=== PATIENT | male | born 1940 | race Caucasian/White ===

== ENCOUNTER 2020-12-13 22:20 | Inpatient (IN) | payer MEDICARE, OTHER ==
[~2020-12-13] VITALS: Ht 172.7 cm; Wt 101.8 kg
[2020-12-13 20:00] VITALS: BP 131/77
[2020-12-13 22:20] VITALS: BP 131/77
[2020-12-13] MEDS ORDERED: ACETAMINOPHEN 325MG TABLET PO PRN (23:30)
[2020-12-13] MEDS ORDERED: ONDANSETRON HCL 4MG TABLET PO PRN (23:30)
[2020-12-14] MEDS: OXYCODONE HCL/ACETAMINOPHEN 5/325MG TABLET PO PRN ×3 (03:26→17:30)
[2020-12-14] MEDS: PANTOPRAZOLE 40MG DR TABLET PO SCH (06:08)
[2020-12-14] MEDS: GABAPENTIN 100MG CAPSULE PO SCH ×3 (06:08→21:59)
[2020-12-14 06:41] LABS: BASOPHILS % 1.1 % (0.0-2.0); EOSINOPHILS % 4.6 % (0.0-5.0); HEMATOCRIT. 24.5 % (42.0-52.0); HEMOGLOBIN. 8.6 g/dL (14.0-18.0); LYMPHOCYTES % 16.9 % (20.0-50.0); MEAN CORPUSCULAR HEMOGLOBIN 30.7 pg (28.0-32.0); MEAN CORPUSCULAR VOLUME 87.8 fL (80.0-94.0); MEAN PLATELET VOLUME 7.7 fl (7.4-10.4); MONOCYTES % 9.6 % (2.0-8.0); NEUTROPHILS % 67.8 % (40.0-76.0); PLATELET 220 x1000/uL (130-400); RED BLOOD CELL COUNT 2.79 mill/uL (4.7-6.1); RED CELL DISTRIBUTION WIDTH 15.1 % (11.6-14.6)
[2020-12-14 06:49] LABS: CHLORIDE 108 mEq/L (98-107)
[2020-12-14 08:00] VITALS: BP 126/60
[2020-12-14] MEDS ORDERED: ASCORBIC ACID 500 MG TABLET PO SCH (09:00)
[2020-12-14] MEDS: CHOLECALCIFEROL (D3) 1000 UNIT TABLET PO SCH (09:04)
[2020-12-14] MEDS: ASCORBIC ACID 500 MG TABLET PO SCH (09:04)
[2020-12-14] MEDS: METOPROLOL TARTRATE 25MG TABLET PO SCH ×2 (09:05→22:00)
[2020-12-14] MEDS ORDERED: ENOXAPARIN 40MG/0.4ML SYR SUBCUT SCH (10:00)
[2020-12-14 20:00] VITALS: BP 116/64
[2020-12-14] MEDS: ENOXAPARIN 30MG/0.3ML SYR SUBCUT SCH (22:00)
[2020-12-15] MEDS: OXYCODONE HCL/ACETAMINOPHEN 5/325MG TABLET PO PRN ×4 (00:58→23:21)
[2020-12-15] MEDS: GABAPENTIN 100MG CAPSULE PO SCH ×3 (05:59→21:08)
[2020-12-15] MEDS: PANTOPRAZOLE 40MG DR TABLET PO SCH (05:59)
[2020-12-15 06:33] LABS: BASOPHILS % 1.2 % (0.0-2.0); EOSINOPHILS % 5.8 % (0.0-5.0); HEMATOCRIT. 24.5 % (42.0-52.0); HEMOGLOBIN. 8.4 g/dL (14.0-18.0); LYMPHOCYTES % 22.2 % (20.0-50.0); MEAN CORPUSCULAR HEMOGLOBIN 30.3 pg (28.0-32.0); MEAN CORPUSCULAR VOLUME 88.2 fL (80.0-94.0); MONOCYTES % 10.9 % (2.0-8.0); NEUTROPHILS % 59.9 % (40.0-76.0); PLATELET 207 x1000/uL (130-400); RED BLOOD CELL COUNT 2.77 mill/uL (4.7-6.1)
[2020-12-15 06:46] LABS: CHLORIDE 108 mEq/L (98-107)
[2020-12-15 06:55] LABS: LDL CHOLESTEROL 79 mg/dL (5-100)
[2020-12-15 06:57] LABS: HDL CHOLESTEROL 30 mg/dL (40-59)
[2020-12-15 08:00] VITALS: BP 133/66
[2020-12-15] MEDS: ASCORBIC ACID 500 MG TABLET PO SCH (09:13)
[2020-12-15] MEDS: CHOLECALCIFEROL (D3) 1000 UNIT TABLET PO SCH (09:13)
[2020-12-15] MEDS: METOPROLOL TARTRATE 25MG TABLET PO SCH ×2 (09:14→21:08)
[2020-12-15] MEDS: ENOXAPARIN 30MG/0.3ML SYR SUBCUT SCH ×2 (09:15→21:08)
[2020-12-15 20:00] VITALS: BP 120/59
[2020-12-16] MEDS: GABAPENTIN 100MG CAPSULE PO SCH ×3 (05:23→20:34)
[2020-12-16] MEDS: ACETAMINOPHEN 500MG TABLET PO PRN ×2 (05:23→13:44)
[2020-12-16] MEDS: PANTOPRAZOLE 40MG DR TABLET PO SCH (05:24)
[2020-12-16 07:50] VITALS: BP 119/57
[2020-12-16] MEDS: OXYCODONE HCL 5MG TABLET PO PRN ×2 (08:05→21:38)
[2020-12-16] MEDS: ASCORBIC ACID 500 MG TABLET PO SCH (08:57)
[2020-12-16] MEDS: CHOLECALCIFEROL (D3) 1000 UNIT TABLET PO SCH (08:57)
[2020-12-16] MEDS: METOPROLOL TARTRATE 25MG TABLET PO SCH ×2 (08:58→20:34)
[2020-12-16] MEDS: ENOXAPARIN 30MG/0.3ML SYR SUBCUT SCH ×2 (09:08→20:35)
[2020-12-16 20:00] VITALS: BP 118/58
[2020-12-17] MEDS: OXYCODONE HCL 5MG TABLET PO PRN ×4 (03:34→23:46)
[2020-12-17] MEDS: PANTOPRAZOLE 40MG DR TABLET PO SCH (06:42)
[2020-12-17] MEDS: GABAPENTIN 100MG CAPSULE PO SCH ×3 (06:42→21:05)
[2020-12-17 08:00] VITALS: BP 103/70
[2020-12-17] MEDS: METOPROLOL TARTRATE 25MG TABLET PO SCH ×2 (09:00→21:05)
[2020-12-17] MEDS: CHOLECALCIFEROL (D3) 1000 UNIT TABLET PO SCH (10:11)
[2020-12-17] MEDS: ASCORBIC ACID 500 MG TABLET PO SCH (10:11)
[2020-12-17] MEDS: ENOXAPARIN 30MG/0.3ML SYR SUBCUT SCH ×2 (10:11→21:06)
[2020-12-17] MEDS ORDERED: NA PHOS,M-B/NA PHOS,DI-BA ENEMA 118ML PR NR (19:15)
[2020-12-17 20:00] VITALS: BP 116/52
[2020-12-18] MEDS: PANTOPRAZOLE 40MG DR TABLET PO SCH (05:49)
[2020-12-18] MEDS: GABAPENTIN 100MG CAPSULE PO SCH ×3 (05:49→20:53)
[2020-12-18] MEDS: OXYCODONE HCL 5MG TABLET PO PRN ×3 (05:50→19:49)
[2020-12-18] MEDS: ENOXAPARIN 30MG/0.3ML SYR SUBCUT SCH ×2 (09:00→20:52)
[2020-12-18 09:12] LABS: BASOPHILS % 1.3 % (0.0-2.0); EOSINOPHILS % 5.8 % (0.0-5.0); HEMATOCRIT. 27.5 % (42.0-52.0); HEMOGLOBIN. 9.2 g/dL (14.0-18.0); MEAN CORPUSCULAR HEMOGLOBIN 30.2 pg (28.0-32.0); MEAN CORPUSCULAR VOLUME 90.3 fL (80.0-94.0); MEAN PLATELET VOLUME 8.8 fl (7.4-10.4); MONOCYTES % 8.7 % (2.0-8.0); NEUTROPHILS % 70.2 % (40.0-76.0); PLATELET 262 x1000/uL (130-400); RED BLOOD CELL COUNT 3.05 mill/uL (4.7-6.1); RED CELL DISTRIBUTION WIDTH 15.3 % (11.6-14.6)
[2020-12-18 09:19] LABS: CHLORIDE 107 mEq/L (98-107)
[2020-12-18] MEDS: CHOLECALCIFEROL (D3) 1000 UNIT TABLET PO SCH (10:08)
[2020-12-18] MEDS: ASCORBIC ACID 500 MG TABLET PO SCH (10:08)
[2020-12-18] MEDS: METOPROLOL TARTRATE 25MG TABLET PO SCH ×2 (10:20→20:51)
[2020-12-18] MEDS ORDERED: LACTULOSE 20G/30ML UDC PO PRN (15:15)
[2020-12-18] MEDS: BISACODYL 5MG TABLET PO PRN (19:45)
[2020-12-18] MEDS: DOCUSATE SODIUM 100MG CAPSULE PO SCH (19:45)
[2020-12-18 20:00] VITALS: BP 129/68
[2020-12-19] MEDS ORDERED: OXYCODONE HCL 5MG TABLET PO PRN (03:45)
[2020-12-19] MEDS ORDERED: OXYCODONE HCL/ACETAMINOPHEN 5/325MG TABLET PO PRN (03:45)
[2020-12-19 08:00] VITALS: BP 131/70
[2020-12-19] MEDS: ACETAMINOPHEN 500MG TABLET PO PRN ×2 (08:03→21:15)
[2020-12-19] MEDS: GABAPENTIN 100MG CAPSULE PO SCH ×3 (08:04→21:15)
[2020-12-19] MEDS: PANTOPRAZOLE 40MG DR TABLET PO SCH (08:04)
[2020-12-19] MEDS: DOCUSATE SODIUM 100MG CAPSULE PO SCH ×2 (09:21→17:30)
[2020-12-19] MEDS: CHOLECALCIFEROL (D3) 1000 UNIT TABLET PO SCH (09:22)
[2020-12-19] MEDS: ASCORBIC ACID 500 MG TABLET PO SCH (09:22)
[2020-12-19] MEDS: METOPROLOL TARTRATE 25MG TABLET PO SCH ×2 (09:22→21:00)
[2020-12-19] MEDS: ENOXAPARIN 30MG/0.3ML SYR SUBCUT SCH ×2 (09:22→21:15)
[2020-12-19 20:00] VITALS: BP 107/59
[2020-12-20] MEDS: OXYCODONE HCL 5MG TABLET PO PRN (00:14)
[2020-12-20] MEDS: OXYCODONE HCL/ACETAMINOPHEN 5/325MG TABLET PO PRN ×3 (03:34→23:34)
[2020-12-20] MEDS: GABAPENTIN 100MG CAPSULE PO SCH ×3 (06:14→22:14)
[2020-12-20] MEDS: FAMOTIDINE 20MG TABLET PO SCH (06:14)
[2020-12-20 08:00] VITALS: BP 129/78
[2020-12-20] MEDS: METOPROLOL TARTRATE 25MG TABLET PO SCH ×2 (08:56→21:00)
[2020-12-20] MEDS: DOCUSATE SODIUM 100MG CAPSULE PO SCH ×2 (08:56→17:33)
[2020-12-20] MEDS: ENOXAPARIN 30MG/0.3ML SYR SUBCUT SCH ×2 (08:56→20:23)
[2020-12-20] MEDS: ASCORBIC ACID 500 MG TABLET PO SCH (08:57)
[2020-12-20] MEDS: CHOLECALCIFEROL (D3) 1000 UNIT TABLET PO SCH (08:57)
[2020-12-20] MEDS: ACETAMINOPHEN 500MG TABLET PO PRN (13:10)
[2020-12-20 15:00] VITALS: BP_SYST 104; BP_SYST 67; BP_SYST 76; BP_DIAS 40; BP_DIAS 60
[2020-12-20] MEDS: BISACODYL 5MG TABLET PO PRN (20:20)
[2020-12-20 20:51] VITALS: BP 120/66
[2020-12-21] MEDS ORDERED: ZOLPIDEM TARTRATE 5MG TABLET PO PRN (01:45)
[2020-12-21] MEDS: FAMOTIDINE 20MG TABLET PO SCH (06:24)
[2020-12-21] MEDS: GABAPENTIN 100MG CAPSULE PO SCH ×3 (06:24→21:41)
[2020-12-21 07:02] LABS: BASOPHILS % 1.9 % (0.0-2.0); EOSINOPHILS % 7.7 % (0.0-5.0); HEMATOCRIT. 29.2 % (42.0-52.0); HEMOGLOBIN. 9.6 g/dL (14.0-18.0); MEAN CORPUSCULAR HEMOGLOBIN 29.1 pg (28.0-32.0); MEAN CORPUSCULAR VOLUME 88.5 fL (80.0-94.0); MEAN PLATELET VOLUME 8.3 fl (7.4-10.4); MONOCYTES % 10.3 % (2.0-8.0); NEUTROPHILS % 65.1 % (40.0-76.0); PLATELET 284 x1000/uL (130-400); RED CELL DISTRIBUTION WIDTH 14.8 % (11.6-14.6)
[2020-12-21 07:12] LABS: CHLORIDE 107 mEq/L (98-107)
[2020-12-21] MEDS: OXYCODONE HCL/ACETAMINOPHEN 5/325MG TABLET PO PRN (08:21)
[2020-12-21 08:25] VITALS: BP 141/74
[2020-12-21] MEDS: DOCUSATE SODIUM 100MG CAPSULE PO SCH ×2 (09:17→17:00)
[2020-12-21] MEDS: ASCORBIC ACID 500 MG TABLET PO SCH (09:18)
[2020-12-21] MEDS: ENOXAPARIN 30MG/0.3ML SYR SUBCUT SCH (09:18)
[2020-12-21] MEDS: CHOLECALCIFEROL (D3) 1000 UNIT TABLET PO SCH (09:18)
[2020-12-21] MEDS: METOPROLOL TARTRATE 25MG TABLET PO SCH (09:22)
[2020-12-21] MEDS: OXYCODONE HCL 5MG TABLET PO PRN ×2 (13:38→22:34)
[2020-12-21] MEDS: MIDODRINE HCL 2.5MG TABLET PO SCH ×2 (15:07→21:40)
[2020-12-21 20:00] VITALS: BP 116/64
[2020-12-21] MEDS: APIXABAN 5 MG TABLET PO SCH (21:40)
[2020-12-22] MEDS: OXYCODONE HCL 5MG TABLET PO PRN ×2 (04:10→10:50)
[2020-12-22] MEDS: MIDODRINE HCL 2.5MG TABLET PO SCH ×3 (06:00→21:08)
[2020-12-22] MEDS: FAMOTIDINE 20MG TABLET PO SCH (06:13)
[2020-12-22] MEDS: GABAPENTIN 100MG CAPSULE PO SCH ×3 (06:13→21:07)
[2020-12-22] MEDS: CHOLECALCIFEROL (D3) 1000 UNIT TABLET PO SCH (09:00)
[2020-12-22] MEDS: DOCUSATE SODIUM 100MG CAPSULE PO SCH ×2 (09:00→16:12)
[2020-12-22] MEDS: APIXABAN 5 MG TABLET PO SCH ×2 (09:00→21:07)
[2020-12-22] MEDS: ASCORBIC ACID 500 MG TABLET PO SCH (09:00)
[2020-12-22] MEDS ORDERED: METOPROLOL TARTRATE 25MG TABLET PO SCH (10:00)
[2020-12-22] MEDS: OXYCODONE HCL/ACETAMINOPHEN 5/325MG TABLET PO PRN ×2 (18:43→22:43)
[2020-12-22 20:00] VITALS: BP 117/67
[2020-12-23] MEDS: OXYCODONE HCL 5MG TABLET PO PRN (02:29)
[2020-12-23] MEDS: OXYCODONE HCL/ACETAMINOPHEN 5/325MG TABLET PO PRN (05:04)
[2020-12-23] MEDS: GABAPENTIN 100MG CAPSULE PO SCH ×3 (05:51→21:00)
[2020-12-23] MEDS: MIDODRINE HCL 2.5MG TABLET PO SCH ×3 (05:52→21:00)
[2020-12-23] MEDS: FAMOTIDINE 20MG TABLET PO SCH (06:01)
[2020-12-23 08:00] VITALS: BP 111/56
[2020-12-23] MEDS: DOCUSATE SODIUM 100MG CAPSULE PO SCH ×2 (08:59→17:26)
[2020-12-23] MEDS: CHOLECALCIFEROL (D3) 1000 UNIT TABLET PO SCH (08:59)
[2020-12-23] MEDS: ASCORBIC ACID 500 MG TABLET PO SCH (08:59)
[2020-12-23] MEDS: APIXABAN 5 MG TABLET PO SCH ×2 (08:59→20:56)
[2020-12-23 09:06] LABS: HEMATOCRIT. 29.4 % (42.0-52.0); HEMOGLOBIN. 10.1 g/dL (14.0-18.0); MEAN CORPUSCULAR HEMOGLOBIN 30.3 pg (28.0-32.0); MEAN CORPUSCULAR VOLUME 87.7 fL (80.0-94.0); MEAN PLATELET VOLUME 8.8 fl (7.4-10.4); PLATELET 293 x1000/uL (130-400); RED BLOOD CELL COUNT 3.35 mill/uL (4.7-6.1); RED CELL DISTRIBUTION WIDTH 15.2 % (11.6-14.6)
[2020-12-23 09:10] LABS: CHLORIDE 106 mEq/L (98-107)
[2020-12-23 12:30] VITALS: BP 147/89
[2020-12-23 12:32] VITALS: BP 156/64
[2020-12-23 15:56] LABS: PLATELET ESTIMATE NORMAL
[2020-12-23] MEDS: BISACODYL 5MG TABLET PO PRN (19:06)
[2020-12-23 20:00] VITALS: BP 145/67
[2020-12-23] MEDS: ACETAMINOPHEN 500MG TABLET PO PRN (20:59)
[2020-12-24] MEDS: OXYCODONE HCL/ACETAMINOPHEN 5/325MG TABLET PO PRN ×3 (00:13→21:23)
[2020-12-24] MEDS: OXYCODONE HCL 5MG TABLET PO PRN (03:47)
[2020-12-24] MEDS: GABAPENTIN 100MG CAPSULE PO SCH ×3 (05:51→21:00)
[2020-12-24] MEDS: MIDODRINE HCL 2.5MG TABLET PO SCH ×3 (05:53→21:00)
[2020-12-24] MEDS: FAMOTIDINE 20MG TABLET PO SCH (07:44)
[2020-12-24 08:00] VITALS: BP 124/65
[2020-12-24] MEDS: ASCORBIC ACID 500 MG TABLET PO SCH (09:25)
[2020-12-24] MEDS: APIXABAN 5 MG TABLET PO SCH ×2 (09:25→20:35)
[2020-12-24] MEDS: DOCUSATE SODIUM 100MG CAPSULE PO SCH ×2 (09:25→16:36)
[2020-12-24] MEDS: CHOLECALCIFEROL (D3) 1000 UNIT TABLET PO SCH (09:25)
[2020-12-24 13:16] VITALS: BP 126/70
[2020-12-24] MEDS: ACETAMINOPHEN 500MG TABLET PO PRN (13:21)
[2020-12-24 20:00] VITALS: BP 143/72
[2020-12-25] MEDS: OXYCODONE HCL 5MG TABLET PO PRN (01:25)
[2020-12-25] MEDS: MIDODRINE HCL 2.5MG TABLET PO SCH ×3 (06:00→22:00)
[2020-12-25] MEDS: GABAPENTIN 100MG CAPSULE PO SCH ×3 (06:03→22:17)
[2020-12-25] MEDS: FAMOTIDINE 20MG TABLET PO SCH (06:04)
[2020-12-25] MEDS: OXYCODONE HCL/ACETAMINOPHEN 5/325MG TABLET PO PRN ×2 (06:04→19:52)
[2020-12-25 07:50] VITALS: BP 142/91
[2020-12-25] MEDS: APIXABAN 5 MG TABLET PO SCH ×2 (08:48→22:18)
[2020-12-25] MEDS: DOCUSATE SODIUM 100MG CAPSULE PO SCH ×2 (08:48→16:34)
[2020-12-25] MEDS: CHOLECALCIFEROL (D3) 1000 UNIT TABLET PO SCH (08:48)
[2020-12-25] MEDS: ASCORBIC ACID 500 MG TABLET PO SCH (08:48)
[2020-12-25 11:55] VITALS: BP 134/75
[2020-12-25 20:00] VITALS: BP 141/75
[2020-12-26] MEDS: OXYCODONE HCL 5MG TABLET PO PRN (00:37)
[2020-12-26] MEDS: GABAPENTIN 100MG CAPSULE PO SCH ×3 (05:25→21:25)
[2020-12-26] MEDS: FAMOTIDINE 20MG TABLET PO SCH (05:25)
[2020-12-26] MEDS: OXYCODONE HCL/ACETAMINOPHEN 5/325MG TABLET PO PRN ×2 (05:31→21:27)
[2020-12-26] MEDS: MIDODRINE HCL 2.5MG TABLET PO SCH ×3 (06:00→21:26)
[2020-12-26 06:20] LABS: CHLORIDE 106 mEq/L (98-107)
[2020-12-26 06:45] LABS: EOSINOPHILS % 12.2 % (0.0-5.0); HEMATOCRIT. 31.5 % (42.0-52.0); HEMOGLOBIN. 10.7 g/dL (14.0-18.0); LYMPHOCYTES % 21.4 % (20.0-50.0); MEAN CORPUSCULAR HEMOGLOBIN 29.8 pg (28.0-32.0); MEAN CORPUSCULAR VOLUME 87.5 fL (80.0-94.0); MONOCYTES % 10.5 % (2.0-8.0); NEUTROPHILS % 53.9 % (40.0-76.0); PLATELET 263 x1000/uL (130-400); RED CELL DISTRIBUTION WIDTH 14.7 % (11.6-14.6)
[2020-12-26 07:34] VITALS: BP 139/75
[2020-12-26] MEDS: DOCUSATE SODIUM 100MG CAPSULE PO SCH ×2 (09:38→16:40)
[2020-12-26] MEDS: ASCORBIC ACID 500 MG TABLET PO SCH (09:38)
[2020-12-26] MEDS: CHOLECALCIFEROL (D3) 1000 UNIT TABLET PO SCH (09:39)
[2020-12-26] MEDS: APIXABAN 5 MG TABLET PO SCH ×2 (09:39→21:26)
[2020-12-26 20:00] VITALS: BP 127/70
[2020-12-27 04:02] VITALS: BP 131/67
[2020-12-27] MEDS: OXYCODONE HCL/ACETAMINOPHEN 5/325MG TABLET PO PRN (04:02)
[2020-12-27] MEDS: MIDODRINE HCL 2.5MG TABLET PO SCH (05:25)
[2020-12-27] MEDS: FAMOTIDINE 20MG TABLET PO SCH (06:05)
[2020-12-27] MEDS: GABAPENTIN 100MG CAPSULE PO SCH (06:06)
[2020-12-27] MEDS: ASCORBIC ACID 500 MG TABLET PO SCH (08:15)
[2020-12-27] MEDS: CHOLECALCIFEROL (D3) 1000 UNIT TABLET PO SCH (08:15)
[2020-12-27] MEDS: DOCUSATE SODIUM 100MG CAPSULE PO SCH (08:15)
[2020-12-27] MEDS: APIXABAN 5 MG TABLET PO SCH (08:16)
[2020-12-27] MEDS ORDERED: BISA10SU62 RC ×2 (12:39→12:41)
[2020-12-27] MEDS ORDERED: ASCO100T12 MT (12:43)
[2020-12-27] MEDS ORDERED: APIX5TAB PO (12:46)
[2020-12-27] MEDS ORDERED: GABA100C PO (12:46)
[2020-12-27] MEDS ORDERED: FAMO-135 PO (12:47)
[2020-12-27] MEDS ORDERED: LOPHC2 MT (12:47)
[2020-12-27] MEDS ORDERED: DOCU-138 PO (12:47)
[2020-12-27] MEDS ORDERED: CHOL200074 (12:51)
[2020-12-27] MEDS ORDERED: CHOL100022 (12:52)
== END 2020-12-27 13:25 | disposition home health service (06) | DRG 964 ==
PROVIDERS: ADMIT Psychiatry & Neurology Neurology; ATTEND Hospitalist
DX: S06.5X0A Traumatic subdural hemorrhage without loss of consciousness, initial encounter (principal); S72.402A Unspecified fracture of lower end of left femur, initial encounter for closed fracture; S52.502A Unspecified fracture of the lower end of left radius, initial encounter for closed fracture; S72.401A Unspecified fracture of lower end of right femur, initial encounter for closed fracture; I48.19 Other persistent atrial fibrillation; D68.59 Other primary thrombophilia; G96.08 Other cranial cerebrospinal fluid leak; S01.81XA Laceration without foreign body of other part of head, initial encounter; M45.9 Ankylosing spondylitis of unspecified sites in spine; D64.9 Anemia, unspecified; R26.89 Other abnormalities of gait and mobility; M85.80 Other specified disorders of bone density and structure, unspecified site; I25.10 Atherosclerotic heart disease of native coronary artery without angina pectoris; E66.01 Morbid (severe) obesity due to excess calories; G47.30 Sleep apnea, unspecified; E78.5 Hyperlipidemia, unspecified; Z96.653 Presence of artificial knee joint, bilateral; Z96.641 Presence of right artificial hip joint; I95.1 Orthostatic hypotension; W11.XXXA Fall on and from ladder, initial encounter; I10 Essential (primary) hypertension; F39 Unspecified mood [affective] disorder; M47.9 Spondylosis, unspecified; Z85.46 Personal history of malignant neoplasm of prostate; Z79.899 Other long term (current) drug therapy; Z79.01 Long term (current) use of anticoagulants; Y93.89 Activity, other specified; Y92.89 Other specified places as the place of occurrence of the external cause; Y99.8 Other external cause status; Z98.1 Arthrodesis status; Z68.34 Body mass index [BMI] 34.0-34.9, adult
CPT/HCPCS: 36415; 80048; 80061; 83735; 84443; 85025; 93005; 93306; 93970; 97110; 97116; 97140; 97162; 97166; 97530; 97535; J1650; Q0162